=== PATIENT | male | born 1975 | race Caucasian/White ===

== ENCOUNTER → 2023-10-01 | Outpatient (CLI) | payer MEDICAID ==
[~2023-10-01] MED LIST: CITA20TA28 PO; WEL100T PO
== END | disposition home or self-care (01) ==
LOC: RAD 11:47
PROVIDERS: ATTEND Physician Assistant
DX: K76.0 Fatty (change of) liver, not elsewhere classified (principal); R94.5 Abnormal results of liver function studies; K42.9 Umbilical hernia without obstruction or gangrene; K82.8 Other specified diseases of gallbladder
CPT/HCPCS: 76700; 76705